=== PATIENT | male | born 1955 | race Caucasian/White ===

== ENCOUNTER 2017-12-27 12:21 | Observation (INO) | payer SELFPAY ==
[~2017-12-27] VITALS: Ht 180.3 cm; Wt 79.1 kg
[2017-12-27 12:29] LABS: BASOPHIL (%) 0.8 % (0-1); BASOPHIL COUNT 0.1 K/uL (0-0.1); EOSINOPHIL (%) 2.5 % (0-5); EOSINOPHIL COUNT 0.2 K/uL (0-0.3); HEMATOCRIT 46.7 % (38.0-50.0); HEMOGLOBIN 15.7 G/DL (12.5-16.6); IMMATURE GRANULOCYTE (%) 0.3 % (0.0-0.7); LYMPHOCYTE (%) 24.9 % (15-42); LYMPHOCYTE COUNT 1.9 K/uL (1.0-2.8); MCH 30.5 PG (29.0-34.0); MCHC 33.6 G/DL (30.0-36.0); MCV 90.9 FL (86-99); MONOCYTE (%) 10.1 % (3-12); MONOCYTE COUNT 0.8 K/uL (0-0.8); NEUTROPHIL (%) 61.4 % (45-76); NEUTROPHIL COUNT 4.6 K/uL (1.8-6.4); PLATELET COUNT 188 K/uL (156-360); RBC DIS.WIDTH-SD 50.4 % (39-53); RED BLOOD COUNT 5.14 M/uL (4.00-5.50); WHITE BLOOD COUNT 7.5 K/uL (4.1-10.2)
[2017-12-27 12:41] LABS: AMYLASE 60 IU/L (1-118); CHLORIDE 107 mEq/L (99-109); POTASSIUM 5.1 mEq/L (3.7-5.4); SODIUM 138 mEq/L (136-147)
[2017-12-27 12:43] LABS: GLUCOSE 96 mg/dL (70-99)
[2017-12-27 12:46] LABS: SERUM ETHYL ALCOHOL < 10 mg/dL
[2017-12-27 12:47] LABS: UREA NITROGEN (BUN) 14 mg/dL (9-23)
[2017-12-27 12:50] LABS: LIPASE 30 U/L (1.0-51.0)
[2017-12-27 13:04] LABS: GFR ESTIMATE (CALCULATED) > 59 mL/min/ (58.99-99999)
[2017-12-27] MEDS ORDERED: ZANTAC150 MG PO (15:20)
[2017-12-27] MEDS ORDERED: ATARAX,VISTARIL25 MG PO (15:20)
[2017-12-27] MEDS ORDERED: AVENTYL,PAMELOR25 MG PO (15:20)
[2017-12-27] MEDS ORDERED: AMLODIPINE BESY10 MG PO (15:21)
[2017-12-27] MEDS ORDERED: DEPAKENE250 MG PO (15:21)
[2017-12-27] MEDS ORDERED: VITAMIN D31000 UNI2 PO (15:22)
[2017-12-27 18:30] LABS: APPEARANCE CLEAR ((CLEAR)); BILIRUBIN NEGATIVE; BLOOD NEGATIVE; COLOR STRAW ((YELLOW)); GLUCOSE (STRIP) NEGATIVE; KETONES NEGATIVE; LEUKOCYTES NEGATIVE; NITRITE NEGATIVE; PROTEIN (STRIP) NEGATIVE; UCUL ADDED? NO; UROBILINOGEN 0.2 MG/DL (0.2-1.0)
[2017-12-27 18:41] LABS: AMPHETAMINE NEGATIVE (500 ng/mL); BARBITURATES NEGATIVE (200 ng/mL); BENZODIAZEPINES PRESUMPTIVE POSITIVE (150 ng/mL); BUPRENORPHINE NEGATIVE (10 ng/mL); COCAINE NEGATIVE (150 ng/mL); METHADONE NEGATIVE (200 ng/mL); METHAMPHETAMINE NEGATIVE (500 ng/mL); OPIATES (MORPHINE) NEGATIVE (100 ng/mL); OXYCODONE NEGATIVE (100 ng/mL); PHENCYCLIDINE NEGATIVE (25 ng/mL); PROPOXYPHENE NEGATIVE (300 ng/mL); THC CANNABINOIDS NEGATIVE (50 ng/mL); TRICYCLIC ANTIDEPRESSANTS NEGATIVE (300 ng/mL)
[2017-12-27 19:30] LABS: BENZODIAZEPINES, URINE SCREEN Negative (200 ng/mL)
[2017-12-27 20:44] VITALS: BP 125/83
[2017-12-28 00:33] VITALS: BP 130/80
[2017-12-28 05:09] VITALS: BP 128/75
[2017-12-28 06:28] LABS: CHLORIDE 107 MEQ/L (99-109); GFR ESTIMATE (CALCULATED) > 59 mL/min/ (58.99-99999); GLUCOSE 80 mg/dL (70-99); POTASSIUM 4.1 MEQ/L (3.7-5.4); SODIUM 141 MEQ/L (136-147); UREA NITROGEN (BUN) 11 mg/dL (9-23)
[2017-12-28 08:03] VITALS: BP 107/68
[2017-12-28 10:55] VITALS: BP 11/79; BP 118/79
[2017-12-28 16:18] VITALS: BP 121/79
[2017-12-29 00:41] VITALS: BP 132/74; BP 167/81
[2017-12-29 04:42] VITALS: BP 136/67
[2017-12-29 07:49] VITALS: BP 120/88
[2017-12-29] MEDS ORDERED: AMLODIPINE BESY10 MG PO (10:40)
[2017-12-29] MEDS ORDERED: DEPAKENE250 MG PO (10:40)
[2017-12-29] MEDS ORDERED: AVENTYL,PAMELOR25 MG PO (10:40)
[2017-12-29 11:33] VITALS: BP 141/93
== END 2017-12-29 16:20 | disposition home or self-care (01) ==
LOC: TRA 12:21 → EDOF 16:47 → ENRESERV 16:50 → 3EAST 18:32
PROVIDERS: Emergency Medicine; Internal Medicine
DX: G40.909 Epilepsy, unspecified, not intractable, without status epilepticus (principal); I10 Essential (primary) hypertension; Z91.14 Patient's other noncompliance with medication regimen; W10.9XXA Fall (on) (from) unspecified stairs and steps, initial encounter; G89.29 Other chronic pain; M54.9 Dorsalgia, unspecified; M79.672 Pain in left foot; M79.671 Pain in right foot; L72.3 Sebaceous cyst; Z86.73 Personal history of transient ischemic attack (TIA), and cerebral infarction without residual deficits
CPT/HCPCS: 70450; 71045; 72125; 80048; 80164; 81003; 82150; 83690; 84999; 85025; 86850; 86900; 86901; 94799; 99202; G0378; G0480; J1650; J1953; J2060; J2405; J7030; J7050